=== PATIENT | female | born 1940 | race Caucasian/White ===

== ENCOUNTER 2024-05-19 14:47 | Inpatient (IN) ==
[2024-05-19] MEDS: Morphine 4 MG/ML VIAL (1 ml) IV ONE ×2 (15:18→17:51)
[2024-05-19] MEDS: Ondansetron 4 mg VIAL 2 MG/ML 2 ml VIAL IV ONE (15:18)
[2024-05-19 15:36] LABS: ABS Eosinophils 0.2 10^3/uL (0.0-0.5); ABS Lymphocytes 1.2 10^3/uL (1.0-4.8); ABS Monocytes 0.7 10^3/uL (0.0-0.9); ABS Neutrophils 10.5 10^3/uL (1.5-7.6); Eosinophil % 1.4 %; Hematocrit 35.5 % (35-45); Hemoglobin 11.6 g/dL (11.5-14.3); Lymphocyte % 9.3 %; Mean Corpuscular Hemoglobin 30.4 pg (27-33); Mean Corpuscular Hgb Conc 32.6 g/dL (31-36); Mean Corpuscular Volume 93.4 fL (80-97); Mean Platelet Volume 8.1 fL (7.5-11.2); Platelet Count 290 10^3/uL (150-450); Red Cell Distribution Width 14.8 % (12-17); White Blood Count 12.6 10^3/uL (3.8-11.8)
[2024-05-19 15:56] LABS: INR 0.88 (0.85-1.14)
[2024-05-19 15:57] LABS: Albumin 4.2 g/dL (3.2-5.2); Albumin/Globulin Ratio 1.6 (1-3); Calcium 9.7 mg/dL (8.6-10.3); Creatinine, Serum 1.51 mg/dL (0.51-0.95); Globulin 2.6 g/dL (2-4); Potassium 4.5 mmol/L (3.5-5.0); Total Bilirubin 0.4 mg/dL (0.2-1.0); Total Protein 6.8 g/dL (6.4-8.9); eGFR CKD-EPI 34.1 (>60)
[2024-05-19] MEDS: HYDROmorphone 1 MG/1 ML SYRINGE IV PRN (19:50)
[2024-05-19] MEDS: Senna TAB 8.6 mg TAB PO SCH (19:50)
[2024-05-19] MEDS: HYDROmorphone 1 MG/1 ML SYRINGE IV SLOW PU PRN (23:04)
[2024-05-20] MEDS: Acetaminophen IV 1 GM/100ML 1,000 MG/100 ML BAG IV SCH (00:03)
[2024-05-20] MEDS: Ondansetron 4 mg VIAL 2 MG/ML 2 ml VIAL IV PRN (04:19)
[2024-05-20 07:40] LABS: ABS Lymphocytes 0.8 10^3/uL (1.0-4.8); ABS Monocytes 0.7 10^3/uL (0.0-0.9); ABS Neutrophils 10.6 10^3/uL (1.5-7.6); ABS Nucleated RBC 0.01 10^3/ul; Eosinophil % 0.3 %; Hematocrit 34.2 % (35-45); Hemoglobin 11.4 g/dL (11.5-14.3); Lymphocyte % 6.5 %; Mean Corpuscular Hemoglobin 31.4 pg (27-33); Mean Corpuscular Hgb Conc 33.3 g/dL (31-36); Mean Corpuscular Volume 94.3 fL (80-97); Mean Platelet Volume 8.4 fL (7.5-11.2); Platelet Count 265 10^3/uL (150-450); Red Blood Count 3.62 10^6/uL (3.63-4.92); Red Cell Distribution Width 14.6 % (12-17); White Blood Count 12.1 10^3/uL (3.8-11.8)
[2024-05-20 07:54] LABS: Calcium 9.1 mg/dL (8.6-10.3); Creatinine, Serum 1.51 mg/dL (0.51-0.95); Potassium 4.6 mmol/L (3.5-5.0); eGFR CKD-EPI 34.1 (>60)
[2024-05-20] MEDS: POTASSIUM CITRATE 15 MEQ PO SCH (10:32)
[2024-05-20] MEDS: Sulfur Hexaflouride MICROSPHR 25 MG VIAL IV PRN (11:18)
[2024-05-20] MEDS ORDERED: Sulfur Hexaflouride MICROSPHR 25 MG VIAL ONE (11:22)
[2024-05-20] MEDS: HYDROmorphone 1 MG/1 ML SYRINGE IV PRN (12:45)
[2024-05-20] MEDS ORDERED: Naloxone 0.4 mg VIAL 0.4 mg/ml 1 ml VIAL IV PRN (14:19)
[2024-05-20] MEDS ORDERED: Metoclopramide 5 MG/ML VIAL (10 mg) IV PRN (14:19)
[2024-05-20] MEDS ORDERED: Ondansetron 4 mg VIAL 2 MG/ML 2 ml VIAL IV PRN (14:19)
[2024-05-20] MEDS ORDERED: Ondansetron 4 mg VIAL 2 MG/ML 2 ml VIAL ONE (14:40)
[2024-05-20] MEDS ORDERED: Dexamethasone IV 4 MG/ML VIAL 1 ml VIAL ONE (14:40)
[2024-05-20] MEDS ORDERED: Lidocaine 2% PF 5 ML VIAL ONE (14:40)
[2024-05-20] MEDS ORDERED: fentaNYL 100 mcg/2 ml 50 MCG/ML VIAL ONE (14:40)
[2024-05-20] MEDS ORDERED: Rocuronium 50 mg VIAL 10 mg/ml 5 ml VIAL (50 mg) ONE (14:41)
[2024-05-20] MEDS ORDERED: NS 0.45% 1000 ml BAG 1,000 ML IV SCH (15:00)
[2024-05-20] MEDS ORDERED: Propofol 10 MG/ML 20 ML BTL ONE (15:23)
[2024-05-20 17:02] LABS: ABS Basophils 0.1 10^3/uL (0.0-0.1); ABS Eosinophils 0.2 10^3/uL (0.0-0.5); ABS Lymphocytes 1.1 10^3/uL (1.0-4.8); ABS Monocytes 0.6 10^3/uL (0.0-0.9); ABS Neutrophils 8.5 10^3/uL (1.5-7.6); Eosinophil % 1.6 %; Hematocrit 34.3 % (35-45); Hemoglobin 11.4 g/dL (11.5-14.3); Lymphocyte % 10.8 %; Mean Corpuscular Hemoglobin 31.2 pg (27-33); Mean Corpuscular Hgb Conc 33.3 g/dL (31-36); Mean Platelet Volume 7.7 fL (7.5-11.2); Platelet Count 247 10^3/uL (150-450); Red Blood Count 3.65 10^6/uL (3.63-4.92); Red Cell Distribution Width 14.4 % (12-17); White Blood Count 10.6 10^3/uL (3.8-11.8)
[2024-05-20 17:14] LABS: Activated Partial Thrombo Time 25.4 seconds (26.0-38.0); INR 0.91 (0.85-1.14)
[2024-05-20 17:53] LABS: Creatinine, Serum 1.38 mg/dL (0.51-0.95)
[2024-05-20] MEDS: Acetaminophen IV 1 GM/100ML 1,000 MG/100 ML BAG IV ONE (19:38)
[2024-05-20] MEDS: Buffered Lidocaine 1% SYRIN 1 ml INTRADERM ONE (19:38)
[2024-05-20] MEDS: Lactated Ringers 1000 ml BAG 1,000 ML IV SCH (19:41)
[2024-05-20] MEDS: Heparin 5000 UNITS/ML 1 mL VIAL SUBCUT ONE (19:44)
[2024-05-20] MEDS: Heparin 5000 UNITS/ML 1 mL VIAL SUBCUT SCH (20:50)
[2024-05-21] MEDS ORDERED: Bupivacaine 0.5% SDV PF 30ML VIAL ONE (13:55)
[2024-05-21] MEDS ORDERED: Propofol 10 MG/ML 20 ML BTL ONE (14:09)
[2024-05-21] MEDS ORDERED: fentaNYL 100 mcg/2 ml 50 MCG/ML VIAL ONE ×4 (14:09→16:53)
[2024-05-21] MEDS ORDERED: Lidocaine 2% PF 5 ML VIAL ONE (14:09)
[2024-05-21] MEDS ORDERED: ceFAZolin 2 GM PREMIX 2 GM/50 ML BAG ONE (14:21)
[2024-05-21] MEDS ORDERED: Phenylephrine 40 mcg/mL 10mL (400mcg) SYRINGE ONE (14:52)
[2024-05-21] MEDS ORDERED: Ondansetron 4 mg VIAL 2 MG/ML 2 ml VIAL ONE (15:10)
[2024-05-21] MEDS ORDERED: Dexamethasone IV 4 MG/ML VIAL 1 ml VIAL ONE (15:10)
[2024-05-21] MEDS: fentaNYL 100 mcg/2 ml 50 MCG/ML VIAL IV PRN (16:31)
[2024-05-21] MEDS ORDERED: Acetaminophen IV 1 GM/100ML 1,000 MG/100 ML BAG IV ONE (17:09)
[2024-05-21] MEDS ORDERED: Morphine 2 MG/ML SYRINGE IV PRN (18:37)
[2024-05-21] MEDS ORDERED: Magnesium Hydroxide LIQ 30 ML UDC PO PRN (18:37)
[2024-05-21] MEDS ORDERED: Polyethylene Glycol 3350 17 GM PACKET PO PRN (18:37)
[2024-05-21] MEDS ORDERED: Ondansetron 4 mg VIAL 2 MG/ML 2 ml VIAL IV PRN (18:37)
[2024-05-21] MEDS ORDERED: Senna TAB 8.6 mg TAB PO PRN (18:37)
[2024-05-21] MEDS: HYDROmorphone 1 MG/1 ML SYRINGE IV SLOW PU PRN (18:42)
[2024-05-21 18:49] LABS: Hematocrit 34.1 % (35-45); Hemoglobin 11.5 g/dL (11.5-14.3)
[2024-05-21] MEDS: Lactated Ringers 1000 ml BAG 1,000 ML IV SCH (19:53)
[2024-05-21] MEDS: Magnesium Hydroxide LIQ 30 ML UDC PO SCH (20:49)
[2024-05-21] MEDS: ceFAZolin 2 GM PREMIX 2 GM/50 ML BAG IV SCH (20:52)
[2024-05-22 07:06] LABS: Hematocrit 30.9 % (35-45); Hemoglobin 10.3 g/dL (11.5-14.3); Mean Platelet Volume 8.4 fL (7.5-11.2); Platelet Count 243 10^3/uL (150-450)
[2024-05-22 07:24] LABS: Calcium 8.7 mg/dL (8.6-10.3); Creatinine, Serum 1.45 mg/dL (0.51-0.95); Potassium 4.7 mmol/L (3.5-5.0); eGFR CKD-EPI 35.8 (>60)
[2024-05-22] MEDS: Enoxaparin 40 MG/0.4 ML SYR SUBCUT SCH (10:58)
[2024-05-22] MEDS: CMC:SitaGLIPtin 100 mg TAB (NF) PO SCH (12:47)
[2024-05-23 05:33] LABS: ABS Basophils 0.1 10^3/uL (0.0-0.1); ABS Eosinophils 0.3 10^3/uL (0.0-0.5); ABS Lymphocytes 1.8 10^3/uL (1.0-4.8); ABS Monocytes 0.8 10^3/uL (0.0-0.9); ABS Neutrophils 7.6 10^3/uL (1.5-7.6); Eosinophil % 2.7 %; Hematocrit 27.3 % (35-45); Hemoglobin 9.2 g/dL (11.5-14.3); Lymphocyte % 16.9 %; Mean Corpuscular Hemoglobin 32.1 pg (27-33); Mean Corpuscular Hgb Conc 33.8 g/dL (31-36); Mean Corpuscular Volume 94.9 fL (80-97); Mean Platelet Volume 8.2 fL (7.5-11.2); Platelet Count 234 10^3/uL (150-450); Red Blood Count 2.87 10^6/uL (3.63-4.92); Red Cell Distribution Width 14.5 % (12-17); White Blood Count 10.6 10^3/uL (3.8-11.8)
[2024-05-23 05:48] LABS: Calcium 8.7 mg/dL (8.6-10.3); Creatinine, Serum 1.59 mg/dL (0.51-0.95); Potassium 4.3 mmol/L (3.5-5.0)
[2024-05-23 10:06] VITALS: BP 114/56
== END 2024-05-23 11:30 | DRG 522 ==
LOC: EDHOLD 14:47 → ED 14:47 → OBSVTOIN 18:03 → SSU 05-20 01:28
PROVIDERS: ADMIT Internal Medicine; ATTEND Internal Medicine

== ENCOUNTER 2024-05-23 10:26 | Inpatient (IN) ==
[2024-05-23] MEDS ORDERED: Al Hydrox/Mg Hydrox/Simet LIQ 30 ML UDC PO PRN (12:19)
[2024-05-23] MEDS ORDERED: Magnesium Hydroxide LIQ 30 ML UDC PO PRN (12:19)
[2024-05-23] MEDS: Senna TAB 8.6 mg TAB PO SCH (21:18)
[2024-05-24 06:36] LABS: ABS Eosinophils 0.3 10^3/uL (0.0-0.5); ABS Monocytes 0.7 10^3/uL (0.0-0.9); ABS Neutrophils 7.5 10^3/uL (1.5-7.6); Eosinophil % 2.8 %; Hematocrit 26.5 % (35-45); Hemoglobin 8.9 g/dL (11.5-14.3); Mean Corpuscular Hemoglobin 31.8 pg (27-33); Mean Corpuscular Hgb Conc 33.6 g/dL (31-36); Mean Corpuscular Volume 94.6 fL (80-97); Platelet Count 233 10^3/uL (150-450); Red Cell Distribution Width 14.7 % (12-17); White Blood Count 9.6 10^3/uL (3.8-11.8)
[2024-05-24 07:12] LABS: Albumin 2.9 g/dL (3.2-5.2); Albumin/Globulin Ratio 1.3 (1-3); Calcium 7.9 mg/dL (8.6-10.3); Creatinine, Serum 1.4 mg/dL (0.51-0.95); Globulin 2.2 g/dL (2-4); Potassium 4.3 mmol/L (3.5-5.0); Total Bilirubin 0.4 mg/dL (0.2-1.0); Total Protein 5.1 g/dL (6.4-8.9); eGFR CKD-EPI 37.3 (>60)
[2024-05-24] MEDS: SitaGLIPtin 100 mg TAB (NF) PO SCH (07:35)
[2024-05-24] MEDS: Polyethylene Glycol 3350 17 GM PACKET PO SCH (07:37)
[2024-05-24] MEDS: Enoxaparin 40 MG/0.4 ML SYR SUBCUT SCH (07:37)
[2024-05-26 06:09] LABS: ABS Basophils 0.1 10^3/uL (0.0-0.1); ABS Eosinophils 0.4 10^3/uL (0.0-0.5); ABS Lymphocytes 1.1 10^3/uL (1.0-4.8); ABS Monocytes 0.7 10^3/uL (0.0-0.9); ABS Neutrophils 5.6 10^3/uL (1.5-7.6); Hematocrit 26.6 % (35-45); Hemoglobin 9.1 g/dL (11.5-14.3); Mean Corpuscular Hemoglobin 32.1 pg (27-33); Mean Corpuscular Hgb Conc 34.2 g/dL (31-36); Mean Corpuscular Volume 93.8 fL (80-97); Mean Platelet Volume 7.3 fL (7.5-11.2); Platelet Count 291 10^3/uL (150-450); Red Blood Count 2.83 10^6/uL (3.63-4.92); Red Cell Distribution Width 14.4 % (12-17); White Blood Count 7.9 10^3/uL (3.8-11.8)
[2024-05-26 07:45] LABS: Albumin/Globulin Ratio 1.3 (1-3); Calcium 8.2 mg/dL (8.6-10.3); Creatinine, Serum 1.51 mg/dL (0.51-0.95); Globulin 2.3 g/dL (2-4); Potassium 4.5 mmol/L (3.5-5.0); Total Bilirubin 0.3 mg/dL (0.2-1.0); Total Protein 5.3 g/dL (6.4-8.9); eGFR CKD-EPI 34.1 (>60)
[2024-05-30 04:49] VITALS: BP 160/69
== END 2024-05-30 12:55 | disposition home or self-care (01) | DRG 560 ==
LOC: PMRU 11:43
PROVIDERS: ADMIT Physical Medicine & Rehabilitation; ATTEND Physical Medicine & Rehabilitation